=== PATIENT | female | born 2000 | race African-American/Black ===

== ENCOUNTER 2021-04-11 12:07 | Emergency (ER) | payer BC, MEDICAID, OTHER ==
[~2021-04-11] VITALS: Ht 170.2 cm; Wt 81.6 kg
[2021-04-11 14:38] VITALS: BP 141/86
[2021-04-11] MEDS ORDERED: HYDROcodone-ACET 5/325MG TAB PO ONE (15:00)
== END 2021-04-11 16:42 | disposition home or self-care (01) ==
LOC: ER 12:07 → EDBD 12:07 → ER 16:24
DX: M54.2 Cervicalgia (principal); M54.5 Low back pain; M54.6 Pain in thoracic spine; M62.830 Muscle spasm of back; V43.92XA Unspecified car occupant injured in collision with other type car in traffic accident, initial encounter; Y93.89 Activity, other specified; Y92.89 Other specified places as the place of occurrence of the external cause; Y99.8 Other external cause status
CPT/HCPCS: 72125; 72128; 72131; 93005